=== PATIENT | male | born 1995 | race African-American/Black ===

== ENCOUNTER 2017-01-09 11:27 | Emergency (ER) | payer MEDICAID, OTHER ==
[~2017-01-09] VITALS: Ht 195.6 cm; Wt 68.0 kg
[~2017-01-09 11:27] MED LIST: CONCERTA
[2017-01-09] MEDS ORDERED: BACITRACIN ZINC OINT UDPKT TOP ONE (14:30)
[2017-01-09] MEDS ORDERED: KETOROLAC 60MG/2ML VIAL IM ONE (14:30)
[2017-01-09] MEDS ORDERED: LIDOCAINE HCL 1% 20ML VIAL (Pyxis) INJ MC ONE (14:30)
[2017-01-09 16:00] VITALS: BP 135/92
== END 2017-01-09 16:39 | disposition home or self-care (01) ==
LOC: ER 14:15
DX: S61.411A Laceration without foreign body of right hand, initial encounter (principal); Y04.0XXA Assault by unarmed brawl or fight, initial encounter; Y93.89 Activity, other specified; Y92.89 Other specified places as the place of occurrence of the external cause; R03.0 Elevated blood-pressure reading, without diagnosis of hypertension
CPT/HCPCS: 73090; 73110; 73130; 96372; 99284; J1885; Z7610; J3490